=== PATIENT | male | born 1960 | race Caucasian/White ===

== ENCOUNTER 2019-12-25 07:19 | Day surgery (SDC) | payer BC ==
[2019-12-25] MEDS ORDERED: Propofol 200 MG/20 ML SDV IV ONE (07:20)
[2019-12-25] MEDS ORDERED: Lidocaine 1% PF 2 ML SDV INJECT ONE (07:20)
[2019-12-25] MEDS ORDERED: Lactated Ringers 1,000 ML IV ONE (07:20)
[2019-12-25] MEDS ORDERED: Lactated Ringers 1,000 ML IV SCH (07:30)
[2019-12-25] MEDS ORDERED: Sodium Chloride 0.9% 10 ML Syringe FLUSH PRN (07:30)
--- NOTE | 2019-12-25 09:47 | PCM.OPNOTE ---
- General Post-Op/Procedure Note Date of Surgery/Procedure: 12/25/19 Operative Procedure(s): c scope Findings: normal exam Pre Op Diagnosis: colon cancer screening Post-Op Diagnosis: nl exam Anesthesia Technique: MAC Primary Surgeon: Jovani Baugh Anesthesia Provider: Jules Osborn Pathology: none Complications: None Condition: Good Free Text/Narrative:: see dictation
--- NOTE | 2019-12-25 15:48 | OR ---
DATE OF OPERATION: 12/25/2019 SURGEON: Jovani Baugh MD PROCEDURE PERFORMED: Colonoscopy. PREOPERATIVE DIAGNOSIS: Personal history of colon polyps. POSTOPERATIVE DIAGNOSIS: Normal exam. INDICATIONS FOR PROCEDURE: This is a 59-year-old white male who presents for followup colonoscopy. He was offered and accepted same. DESCRIPTION OF OPERATION: After an excellent IV sedation was administered, digital rectal exam was performed. No marked abnormality was noted. Flexible colonoscope was then inserted and advanced up to the cecum. We did have to maneuver the patient to intubate the cecum, which was successful. The following findings were noted. Ascending colon, unremarkable. Transverse colon, unremarkable. Descending colon, unremarkable. Sigmoid and rectum, unremarkable. Colon was deflated as the scope was removed. Based on the findings, recommendations are repeat colonoscopy in 10 years. /[id number] /MODL
== END 2019-12-25 10:12 | disposition home or self-care (01) ==
LOC: FB.SDS 07:19
PROVIDERS: ATTEND Surgery
DX: Z12.11 Encounter for screening for malignant neoplasm of colon (principal); I10 Essential (primary) hypertension; E11.9 Type 2 diabetes mellitus without complications; Z87.891 Personal history of nicotine dependence; Z86.010 Personal history of colon polyps; Z79.84 Long term (current) use of oral hypoglycemic drugs; Z79.899 Other long term (current) drug therapy; Z88.5 Allergy status to narcotic agent
CPT/HCPCS: 82962; J2001; J2704; J7120